=== PATIENT | male | born 1945 | race Caucasian/White ===

== ENCOUNTER 2022-12-25 17:53 | Emergency (ER) | payer OTHER ==
[2022-12-25 18:48] LABS: Absolute Lymphocytes (CBC) 1.4 K/uL (0.7-4.9); Hematocrit 43.1 % (39.6-49.0); Lymphocytes % 20.9 % (15.3-44.8); MCV 96.3 fL (80-100); MPV 9.5 fL (7.6-11.3); RBC Red Blood Cell Count 4.48 M/uL (4.33-5.43)
[2022-12-25 18:58] LABS: Potassium 4.3 mEq/L (3.5-5.1); Troponin High Sensitivity 7.2 pg/mL (<58.9)
--- NOTE | 2022-12-25 19:20 | RAD REPORT ---
EXAM DESCRIPTION: CT - Thorax Wo Con CLINICAL HISTORY: Chest pain CHEST PAIN COMPARISON: No comparisons FINDINGS: The lungs are mildly emphysematous but clear. No pleural thickening or pleural effusion. N o pneumothorax. No axillary, mediastinal or hilar adenopathy. Multilevel spondylosis of the thoracic spine. Mild dextroscoliosis. No gross upper abdominal finding. All CT scans are performed using dose optimization technique as appropriate and may include automated exposure control or mA/KV adjustment according to patient size. IMPRESSION: No acute intrathoracic abnormality detected.
[2022-12-25 19:47] LABS: Albumin 3.6 g/dL (3.4-5.0); Bilirubin Direct 0.2 mg/dL (0-0.2); Bilirubin Indirect, Calculated 0.1 mg/dL (0.2-0.8); Bilirubin Total 0.3 mg/dL (0.2-1.0); Protein, Total 7.6 g/dL (6.4-8.2)
--- NOTE | 2022-12-25 21:03 | RAD REPORT ---
EXAM DESCRIPTION: US - Abdomen Exam Limited - 12/25/2022 8:54 pm CLINICAL HISTORY: ABD PAIN COMPARISON: No comparisons FINDINGS: The gallbladder demonstrates no gallstones. No pericholecystic fluid or gallbladder wall t hickening. The common bile duct is normal measuring 5 mm. The liver demonstrates no findings of intrahepatic biliary dilatation. IMPRESSION: Unremarkable examination.
--- NOTE | 2022-12-25 22:02 | EDPHYS ---
Physician Documentation [facility] Name: Durga Crowe Age: 77 yrs Sex: Male : 1945 Arrival Date: 12/25/2022 Time: 17:53 Bed 17 Private MD: ED Physician Galo Robison HPI: 12/25 19:09 This 77 yrs old Male presents to ER via Ambulatory with complaints of Flank Pain, Rib sp3 pain. 19:09 77-year-old male with no significant past medical history who is also seen at the [facility] now presents with 2-day history of right-sided rib pain that gets worse on movement and also extends "under his rib". He denies any strenuous activity, trauma, or any other exacerbating history. He denies substernal chest pain, shortness of breath, neck pain, headache, fever, URI symptoms, cough, back pain, lower abdominal pain, nausea, vomiting, diarrhea, syncope, near syncope, focal neurodeficit, skin rash, known sick contacts, travel history, any other signs or symptoms on ROS at this time. Pain is described as sharp and positional. He states he has had this a few years ago and while he was seen at the [facility] he was told he had a "pulled muscle".. Historical: - Allergies: 18:15 No Known Allergies; cm10 - Home Meds: 18:15 None [Active]; cm10 - PMHx: 18:15 None; cm10 - PSHx: 18:15 None; cm10 - Immunization history:: Adult Immunizations unknown. - Social history:: Smoking status: . ROS: 19:10 Constitutional: Negative for fever, chills, and weight loss, Eyes: Negative for injury, sp3 pain, redness, and discharge, ENT: Negative for injury, pain, and discharge, Neck: Negative for injury, pain, and swelling, Respiratory: Negative for shortness of breath, cough, wheezing, and pleuritic chest pain, Back: Negative for injury and pain, MS/Extremity: Negative for injury and deformity, Skin: Negative for injury, rash, and discoloration, Neuro: Negative for headache, weakness, numbness, tingling, and seizure, Psych: Negative for depression, anxiety, suicide ideation, homicidal ideation, and hallucinations, Allergy/Immunology: Negative for hives, rash, and allergies, Endocrine: Negative for neck swelling, polydipsia, polyuria, polyphagia, and marked weight changes. 19:10 All other systems are negative. Exam: 19:10 Constitutional: This is a well developed, well nourished patient who is awake, alert, sp3 and in no acute distress. Head/Face: Normocephalic, atraumatic. Eyes: Pupils equal round and reactive to light, extra-ocular motions intact. Lids and lashes normal. Conjunctiva and sclera are non-icteric and not injected. Cornea within normal limits. Periorbital areas with no swelling, redness, or edema. ENT: Nares patent. No nasal discharge, no septal abnormalities noted. External auditory canals are clear. Oropharynx with no redness, swelling, or masses, exudates, or evidence of obstruction, uvula midline. Mucous membranes moist. Neck: Trachea midline, no thyromegaly or masses palpated, and no cervical lymphadenopathy. Supple, full range of motion without nuchal rigidity, or vertebral point tenderness. No Meningismus. Cardiovascular: Regular rate and rhythm with a normal S1 and S2. No gallops, murmurs, or rubs. Normal PMI, no JVD. No pulse deficits. Respiratory: Lungs have equal breath sounds bilaterally, clear to auscultation and percussion. No rales, rhonchi or wheezes noted. No increased work of breathing, no retractions or nasal flaring. Back: No spinal tenderness. No costovertebral tenderness. Full range of motion. Skin: Warm, dry with normal turgor. Normal color with no rashes, no lesions, and no evidence of cellulitis. MS/ Extremity: Pulses equal, no cyanosis. Neurovascular intact. Full, normal range of motion. Neuro: Awake and alert, GCS 15, oriented to person, place, time, and situation. Cranial nerves II-XII grossly intact. Motor strength 5/5 in all extremities. Sensory grossly intact. Cerebellar exam normal. Normal gait. Psych: Awake, alert, with orientation to person, place and time. Behavior, mood, and affect are within normal limits. 19:10 Chest/axilla: No pain to palpation but is torso is rotated there are episodes of pain noted. Pain is diffuse on the right side and very sharp in nature.. 19:10 Abdomen/GI: No pain to palpation including right upper quadrant and Clark sign however pain is there when the chest pain occurs.. 19:28 ECG was reviewed by the Attending Physician. EKG demonstrates sinus bradycardia 43 bpm sp3 with normal intervals, normal axis, normal QRS, normal ST/T-segment without evidence of acute ischemia. 21:59 EKG reveals sinus bradycardia at the rate of 43, otherwise EKG is normal. sp4 Vital Signs: 18:13 BP 139 / 89 RA Sitting (auto/reg); Pulse 56; Resp 16; Temp 98.4(TE); Pulse Ox 100% on cm10 R/A; Weight 70.31 kg (R); Height 6 ft. 1 in. (R); Pain 8/10; 19:33 BP 156 / 87; Pulse 47; Resp 19 S; Pulse Ox 99% on R/A; ha1 20:45 BP 147 / 87; Pulse 47; Resp 16 S; Pulse Ox 98% on R/A; ha1 21:15 BP 147 / 85; Pulse 51; Resp 16 S; Pulse Ox 97% on R/A; ha1 22:15 BP 143 / 82; Pulse 47; Resp 16 S; Pulse Ox 98% on R/A; ha1 18:13 Body Mass Index 20.45 (70.31 kg, 185.42 cm) cm10 18:13 Pain Scale: Adult cm10 MDM: 18:21 Patient medically screened. sp3 19:11 Data reviewed: vital signs, nurses notes, lab test result(s), radiologic studies. ED sp3 course: 77-year-old healthy male who is also a patient of the [facility] now presents with right-sided positional chest pain extending into the right upper quadrant. Differential diagnosis includes musculoskeletal pain including muscle strain, occult rib fracture, pneumothorax, pleurisy, gallbladder pathology including cholelithiasis/cholecystitis, other biliary pathology, acute coronary syndrome, other pulmonary process. We will obtain laboratory values including troponin level, lipase level, LFTs as well as a noncontrast CT scan of the chest and right upper quadrant ultrasound. I am not highly suspicious for acute coronary syndrome or any other critical finding. He declined pain medication at this time. If work-up is negative will DC home with [facility] follow-up. Patient will likely be signed out to night physician for final disposition. 21:59 Differential diagnosis: nephrolithiasis, pyelonephritis, UTI, diverticulitis, sp4 pancreatitis, Cholecystitis. Data reviewed: EKG. 21:59 ED course: Patient's CT and ultrasound today are unremarkable. Pain appears to be on sp4 surface around abdominal and lateral abdominal musculature on the right side. Pain exacerbated by movement. Overall work-up is unremarkable today. Patient stable for discharge home with as needed muscle relaxants. [facility] the [facility] 3 days. [facility] 2 [facility] for repeat examination.. 12/25 18:21 Order name: Basic Metabolic Panel; Complete Time: 19:48 sp3 12/25 18:21 Order name: CBC with Diff; Complete Time: 19:48 sp3 12/25 18:21 Order name: Troponin HS; Complete Time: 19:48 sp3 12/25 19:05 Order name: LFT's; Complete Time: 19:48 sp3 12/25 19:05 Order name: Lipase; Complete Time: 19:48 sp3 12/25 18:21 Order name: CT Chest Wo Con; Complete Time: 19:48 sp3 12/25 19:05 Order name: US Abdomen Limited: RUQ pain gallbladder; Complete Time: 21:36 sp3 12/25 18:21 Order name: EKG; Complete Time: 18:22 sp3 12/25 18:21 Order name: Cardiac monitoring; Complete Time: 19:29 sp3 12/25 18:21 Order name: EKG - Nurse/Tech; Complete Time: 19:24 sp3 12/25 18:21 Order name: IV Saline Lock; Complete Time: 18:39 sp3 12/25 18:21 Order name: Labs collected and sent; Complete Time: 18:39 sp3 12/25 18:21 Order name: O2 Sat Monitoring; Complete Time: 19:24 sp3 Administered Medications: 22:09 Drug: Ketorolac IVP 30 mg Route: IVP; Site: left forearm; ha1 22:32 Follow up: Response: No adverse reaction; Pain is decreased ha1 22:10 Drug: Methocarbamol PO 750 mg Route: PO; ha1 22:33 Follow up: Response: No adverse reaction ha1 Disposition Summary: 12/25/22 22:01 Discharge Ordered Location: Home sp4 Problem: new sp4 Symptoms: have improved sp4 Condition: Stable sp4 Diagnosis - Right upper quadrant abdominal pain, right lower chest pain, noncardiac chest pain, sp4 musculoskeletal chest wall pain. Followup: sp4 - With: Private Physician - When: 7 - 10 days - Reason: Recheck today's complaints Discharge Instructions: - Discharge Summary Sheet sp4 - Musculoskeletal Pain sp4 Prescriptions: - Tramadol 50 mg Oral Tablet - take 1 tablet by ORAL route every 8 hours as needed; 12 tablet; Refills: 0, sp4 Product Selection Permitted - methocarbamol 750 mg Oral Tablet - take 1 tablet by ORAL route 3 times per day; 30 tablet; Refills: 0, Product sp4 Selection Permitted Signatures: Dispatcher [employer] Lara Bridges MD MD sp3 Mary Lucas RN RN ha1 Galo Robison MD MD sp4 Jazmyn Corral RN RN cm10
--- NOTE | 2022-12-25 22:02 | ER ---
Nurse's Notes [facility] Name: Durga Crowe Age: 77 yrs Sex: Male : 1945 Arrival Date: 12/25/2022 Time: 17:53 Bed 17 Private MD: Diagnosis: Right upper quadrant abdominal pain, right lower chest pain, noncardiac chest pain, musculoskeletal chest wall pain. Presentation: 12/25 18:13 Chief complaint: Patient states: Pt reports right sided rib pain onset 2 days ago. Pt cm10 reports having similar issue a couple of years ago and returned a few days ago. Patient denies chest pain or shortness of breath. Coronavirus screen: Vaccine status: Patient reports receiving the 2nd dose of the covid vaccine. Client denies travel out of the [place] in the last 14 days. At this time, the client does not indicate any symptoms associated with coronavirus-19. Ebola Screen: No symptoms or risks identified at this time. Initial Sepsis Screen: Does the patient meet any 2 criteria? No. Patient's initial sepsis screen is negative. Does the patient have a suspected source of infection? No. Patient's initial sepsis screen is negative. Risk Assessment: Do you want to hurt yourself or someone else? Patient reports no desire to harm self or others. Onset of symptoms was December 22, 2022. 18:13 Method Of Arrival: Ambulatory cm10 18:13 Acuity: ALVA 3 cm10 Triage Assessment: 18:16 General: Appears in no apparent distress. comfortable, Behavior is calm, cooperative. cm10 Pain: Complains of pain in right lateral anterior chest Pain currently is 8 out of 10 on a pain scale. Quality of pain is described as aching, sharp, Pain began 2-3 days ago. Is continuous, Alleviated by nothing. Aggravated by repositioning. Historical: - Allergies: 18:15 No Known Allergies; cm10 - Home Meds: 18:15 None [Active]; cm10 - PMHx: 18:15 None; cm10 - PSHx: 18:15 None; cm10 - Immunization history:: Adult Immunizations unknown. - Social history:: Smoking status: . Screenin:17 [facility] ED Fall Risk Assessment (Adult) History of falling in the last 3 months, cm10 including since admission No falls in past 3 months (0 pts) Confusion or Disorientation No (0 pts) Intoxicated or Sedated No (0 pts) Impaired Gait No (0 pts) Mobility Assist Device Used No (0 pt) Altered Elimination No (0 pt) Score/Fall Risk Level 0 - 2 = Low Risk. Abuse screen: Denies threats or abuse. Denies injuries from another. Nutritional screening: No deficits noted. Tuberculosis screening: No symptoms or risk factors identified. Assessment: 19:31 Reassessment:. General: Appears uncomfortable, Behavior is calm, cooperative. Pain: nj1 Complains of pain in right lateral anterior chest Pain does not radiate. Pain currently is 10 out of 10 on a pain scale. Quality of pain is described as throbbing, Pain began gradually, Is continuous, Aggravated by increased activity. Neuro: Level of Consciousness is awake, alert, obeys commands, Oriented to person, place, time, situation. Cardiovascular: Capillary refill < 3 seconds Patient's skin is warm and dry. Respiratory: Airway is patent Trachea midline Respiratory effort is even, unlabored, Respiratory pattern is regular, symmetrical. GI: No signs and/or symptoms were reported involving the gastrointestinal system. Abdomen is flat, non-distended, Bowel sounds present X 4 quads. Musculoskeletal: Circulation, motion, and sensation intact. Range of motion: intact in all extremities, Reports pain in right lateral anterior chest. 20:24 Reassessment: Patient and/or family updated on plan of care and expected duration. Pain ha1 level reassessed. Patient is alert, oriented x 3, equal unlabored respirations, skin warm/dry/pink. awaiting on ultrasound. 21:14 Reassessment: Patient and/or family updated on plan of care and expected duration. Pain ha1 level reassessed. Patient is alert, oriented x 3, equal unlabored respirations, skin warm/dry/pink. pain 6/10. states " resting helps me feel better.". 22:20 Reassessment: Patient and/or family updated on plan of care and expected duration. Pain ha1 level reassessed. Patient is alert, oriented x 3, equal unlabored respirations, skin warm/dry/pink. Patient states feeling better. Patient states symptoms have improved. Vital Signs: 18:13 BP 139 / 89 RA Sitting (auto/reg); Pulse 56; Resp 16; Temp 98.4(TE); Pulse Ox 100% on cm10 R/A; Weight 70.31 kg (R); Height 6 ft. 1 in. (R); Pain 8/10; 19:33 BP 156 / 87; Pulse 47; Resp 19 S; Pulse Ox 99% on R/A; ha1 20:45 BP 147 / 87; Pulse 47; Resp 16 S; Pulse Ox 98% on R/A; ha1 21:15 BP 147 / 85; Pulse 51; Resp 16 S; Pulse Ox 97% on R/A; ha1 22:15 BP 143 / 82; Pulse 47; Resp 16 S; Pulse Ox 98% on R/A; ha1 18:13 Body Mass Index 20.45 (70.31 kg, 185.42 cm) cm10 18:13 Pain Scale: Adult cm10 ED Course: 17:58 Patient arrived in ED. mr 18:07 Lara Diaz MD is Attending Physician. sp3 18:15 Triage completed. cm10 18:16 Arm band placed on Patient placed in waiting room. cm10 18:39 Inserted saline lock: 20 gauge in left antecubital area, using aseptic technique. Blood ll1 collected. 18:57 Patient placed in an exam room, on a stretcher. cm10 19:12 CT Chest Wo Con In Process Unspecified. EDMS 19:20 Patient has correct armband on for positive identification. Bed in low position. Call ha1 light in reach. Side rails up X 1. 19:23 Yisel Garcia, RN is Primary Nurse. nj1 20:29 Attending Physician role handed off by Lara Diaz MD sp4 20:29 Galo Robison MD is Attending Physician. sp4 20:56 US Abdomen Limited: RUQ pain gallbladder In Process Unspecified. EDMS 22:30 No provider procedures requiring assistance completed. IV discontinued, intact, ha1 bleeding controlled, No redness/swelling at site. Pressure dressing applied. Administered Medications: 22:09 Drug: Ketorolac IVP 30 mg Route: IVP; Site: left forearm; ha1 22:32 Follow up: Response: No adverse reaction; Pain is decreased ha1 22:10 Drug: Methocarbamol PO 750 mg Route: PO; ha1 22:33 Follow up: Response: No adverse reaction ha1 Medication: 22:32 VIS not applicable for this client. ha1 Outcome: 22:01 Discharge ordered by . sp4 22:32 Discharged to home ambulatory. ha1 22:32 Condition: stable 22:32 Discharge instructions given to patient, Instructed on discharge instructions, follow up and referral plans. medication usage, Demonstrated understanding of instructions, follow-up care, medications, Prescriptions given X 2. 22:33 Patient left the ED. [facility] Signatures: Dispatcher [employer] EDMai Vasques Leslie, RN RN ll1 Lara Diaz MD MD sp3 Mary Lucas RN RN ha1 Galo Robison MD MD sp4 Yisel Garcia RN RN nj1 Jazmyn Corral RN RN cm10 Corrections: (The following items were deleted from the chart) 19:31 General: Appears uncomfortable, Behavior is calm, cooperative, [place] [id number] :21 19:31 Pain: Complains of pain in right lateral anterior chest Pain does not radiate. [facility] Pain currently is 10 out of 10 on a pain scale. Quality of pain is described as throbbing, Pain began gradually, Aggravated by increased activity, [place] : 19:31 Neuro: Level of Consciousness is awake, alert, obeys commands, Oriented to [facility] person, place, time, situation, [place] 19:31 Cardiovascular: Capillary refill < 3 seconds Patient's skin is warm and dry. [place] [id number] :21 19:31 Respiratory: Airway is patent Respiratory effort is even, unlabored, Respiratory [facility] pattern is regular, symmetrical, [place] : 19:31 GI: No signs and/or symptoms were reported involving the gastrointestinal system. [facility] Abdomen is flat, non-distended, [place] :21 19:31 Musculoskeletal: Circulation, motion, and sensation intact. Range of motion: [facility] intact in all extremities, [place] :23 19:33 BP 156 / 87; Pulse 47bpm; Resp 19bpm; Spontaneous; Pulse Ox 100% RA; [place] [id number]
[2022-12-25] MEDS ORDERED: methocarbamoL 750 MG TAB ONE (22:13)
[2022-12-25] MEDS ORDERED: KETOROLAC 30 MG/ML INJ ONE (22:13)
[2022-12-25 23:02] VITALS: TEMP 98.4
[2022-12-25 23:08] VITALS: BP 147/85; O2SAT 97
--- NOTE | 2022-12-26 14:17 | EKG ---
Test Date: 2022-12-25 Test Time: 19:22:28 [employer]r: ROBERTO MEASUREMENT RESULTS: Intervals: Rate: 43 MA: 190 QRSD: 100 QT: 474 QTc: 400 [place]: P: 77 MA: 190 QRS: 24 T: 74 INTERPRETIVE STATEMENTS: Marked sinus bradycardia Septal infarct, age undetermined Abnormal ECG No previous ECG available for comparison Electronically Signed On 12-26-22 14:15:55 CDT by Tate Martinez
== END 2022-12-25 22:33 | disposition home or self-care (01) ==
LOC: ER 17:53
DX: R07.89 Other chest pain (principal); M79.18 Myalgia, other site
CPT/HCPCS: 36415; 71250; 76705; 80048; 80076; 83690; 84484; 85025; 93005; 96374; 99284